=== PATIENT | male | born 1965 | race Caucasian/White ===

== ENCOUNTER 2019-09-20 14:13 | Emergency (ER) | payer OTHER ==
[2019-09-20 14:30] VITALS: TEMP 98; BMI 38.7
--- NOTE | 2019-09-20 14:38 | PDOC ---
History of Present Illness - General Chief Complaint: Substance Abuse Stated Complaint: Substance Abuse Time Seen by Provider: 09/20/19 14:36 History Source: Patient Exam Limitations: No Limitations - History of Present Illness Initial Comments: 09/20/19 14:37 HPI: 54yo M with PMH hypothyroidism and peripheral neuropathy in b/l LE presenting 3 hours s/p smoking K2 (Mr. Gerber). Pt reports he feels normal and that he is here because his wanted him to be evaluated. He denies prior reactions to K2, denies any symptoms at the current time. Denies CP, SOB, cough , nausea, vomiting, fevers, chills, anxiety, agitation, palpitations. Declines to explain why he smokes K2. ALL: Denies Meds: Synthroid, gabapentin, cymbalta PMH: As above PSH: Finger tumor removal SHx: Denies smoking / drinking, has smoked K2 multiple times. Lives with his , works as a computer technical specialist Past History - Travel Traveled outside of the country in the last 30 days: No Close contact w/someone who was outside of country & ill: No - Past Medical History Allergies/Adverse Reactions: Allergies Allergy/AdvReac Type Severity Reaction Status Date / Time No Known Allergies Allergy Verified 09/20/19 14:30 COPD: No Thyroid Disease: Yes (HYPOTHYOIDISM) Other medical history: NEUROPATHY - Psycho Social/Smoking Cessation Hx Smoking History: Never smoked Have you smoked in the past 12 months: No Information on smoking cessation initiated: No Hx Alcohol Use: No Drug/Substance Use Hx: No Review of Systems - Review of Systems Able to Perform ROS?: Yes Is the patient limited [place] proficient: Yes Constitutional: No: Symptoms Reported, See HPI, Chills, Diaphoresis, Fever, Loss of Appetite, Malaise, Night Sweats, Weakness, Weight Stable, Unintentional Wgt. Loss, Unexplained wgt Loss, Other HEENTM: No: Symptoms Reported, See HPI, Eye Pain, Blurred Vision, Tearing, Recent change in vision, Double Vision, Cataracts, Ear Pain, Ocular Prothesis, Ear Discharge, Nose Pain, Nose Congestion, Tinnitus, Nose Bleeding, Hearing Loss , Throat Pain, Throat Swelling, Mouth Pain, Dental Problems, Difficulty Swallowing, Mouth Swelling, Other Respiratory: No: Symptoms reported, See HPI, Cough, Orthopnea, Shortness of Breath, SOB with Exertion, SOB at Rest, Stridor, Wheezing, Productive cough, Hemoptysis, Other Cardiac (ROS): No: Symptoms Reported, See HPI, Chest Pain, Edema, Irregular Heart Rate, Lightheadedness, Palpitations, Syncope, Chest Tightness, Other ABD/GI: No: Symptoms Reported, See HPI, Abdominal Distended, Abd. Pain w/ defecation, Blood Streaked Bowels, Constipated, Diarrhea, Difficulty Swallowing , Nausea, Poor Appetite, Poor Fluid Intake, Rectal Bleeding, Vomiting, Indigestion, Abdominal cramping, Tarry Stools, Other : No: Symptoms Reported, See HPI, Burning, Dysuria, Discharge, Frequency, Flank Pain, Hematuria, Incontinence, Pain, Urgency, Testicular Mass, Testicular Swelling, Lesions, Testicular Pain, Other Musculoskeletal: No: Symptoms Reported, See HPI, Back Pain, Gout, Joint Pain, Joint Swelling, Muscle Pain, Muscle Weakness, Neck Pain, Joint Stiffness, Other Integumentary: No: Symptoms Reported, See HPI, Bruising, Change in Color, Change in Hair/Nails, Dryness, Erythema, Flushing, Lesions, Lumps, Pallor, Pruritus, Rash, Sweating, Other Neurological: No: Symptoms reported, See HPI, Headache, Numbness, Paresthesia, Pre-Existing Deficit, Seizure, Tingling, Tremors, Weakness, Unsteady Gait, Ataxia, Dizziness, Other Psychiatric: No: Anxiety, Depression, Frequent Crying, Stressors, Sleep Pattern Change, Emotional Problems, Mood Swings, Change in Appetite, Other Endocrine: No: Symptoms Reported, See HPI, Excessive Sweating, Flushing, Intolerance to Cold, Intolerance to Heat, Increased Hunger, Increased Thirst, Increased Urine, Unexplained Weight Gain, Unexplained Weight Loss, Change in Weight, Other Hematologic/Lymphatic: No: Symptoms Reported, See HPI, Anemia, Blood Clots, Easy Bleeding, Easy Bruising, Bleeding Diathesis, Lymph Node Abnormalities, Swollen Glands, Other All Other Systems: Reviewed and Negative *Physical Exam - Vital Signs Last Vital Signs Temp Pulse Resp BP Pulse Ox 98 F 70 18 151/83 97 09/20/19 14:26 09/20/19 14:26 09/20/19 14:26 09/20/19 14:26 09/20/19 14:26 - Physical Exam 09/20/19 14:37 Vitals reviewed, afebrile, hypertensive WDWN man, appears extremely relaxed, laying on stretcher NCAT, MMM, EOMI, trachea mildline RRR, nlo s1s2, no murmurs appreciated CTABL, normal WOB, no wheezes / rales / rhonchi Obese, soft, nontender, nondistended 2+ Radial and PT pulses WWP, no clubbing / cyanosis / edema CN grossly intact, sensation intact throughout, motor intact Medical Decision Making - Medical Decision Making 09/20/19 15:07 54yo M with PMH hypothyroidism and peripheral neuropathy in b/l LE presenting 3 hours s/p smoking K2 (Mr. Gerber). Presents for evaluation when his "caught him" smoking K2. No complaints. Normal physical exam and vitals (aside from hypertension). Will monitor, ambulate, and dispo. - EKG - Ambulate patient Dispo: Home with stable ambulation 09/20/19 16:31 - EKG NSR, normal axis, normal intervals, normal morphologies without ischemic changes - Patient ambulating well - Discharge home Discharge - Discharge Information Problems reviewed: Yes Clinical Impression/Diagnosis: Intoxication by drug Qualifiers: Complication of substance-induced condition: uncomplicated Qualified Code(s): F19.920 - Other psychoactive substance use, unspecified with intoxication, uncomplicated Condition: Improved Disposition: HOME - Admission No - Follow up/Referral Referrals: Jensen Olea [Primary Care Provider] - - Patient Discharge Instructions Additional Instructions: You were seen and evaluated in the [facility] ED. Thank you for coming in. We would recommend that you refrain from smoking K2. It is an unstudied compound and every package can affect you differently - it is unsafe for human consumption and could cause permanent disability or . Do not play roulette with your life. Please follow up with your PCP within the next week. Return to the ED for any new or concerning symptoms including but not limited to : difficulty breathing or chest pain. - Post Discharge Activity
--- NOTE | 2019-09-20 16:09 | PDOC ---
Attending Attestation - Resident Resident Name: Nain Brown - ED Attending Attestation I have performed the following: I have examined & evaluated the patient, The case was reviewed & discussed with the resident, I agree w/resident's findings & plan, Exceptions are as noted - HPI HPI: 09/20/19 16:04 54 M with h/o hypothyroid, peripheral neuropathy, presenting to ED after smoking K2. Pt states that he smokes K2 occasionally. He has no complaints but states that he is here because his caught him and called 911. Pt denies any other drug use. - Physicial Exam PE: 09/20/19 16:08 "GENERAL: Awake, alert, and fully oriented, in no acute distress. HEAD: No signs of trauma EYES: PERRLA, EOMI, sclera anicteric, conjunctiva clear ENT: Auricles normal inspection, hearing grossly normal, nares patent, oropharynx clear without exudates. Moist mucosa NECK: Nontender, no stepoffs, Normal ROM, supple, no lymphadenopathy, JVD, or masses LUNGS: Breath sounds equal, clear to auscultation bilaterally. No wheezes, and no crackles HEART: Regular rate and rhythm, normal S1 and S2, no murmurs, rubs or gallops ABDOMEN: Soft, nontender, normoactive bowel sounds. No guarding, no rebound. No masses EXTREMITIES: Normal range of motion, no edema. No clubbing or cyanosis. No cords, erythema, or tenderness NEUROLOGICAL: Cranial nerves II through XII intact. 5/5 strength and sensation in all extremities, Normal speech, normal gait, normal cerebellar function SKIN: Warm, Dry, normal turgor, no rashes or lesions noted. - Medical Decision Making 09/20/19 16:08 54 M with no complaints, sent to ED by his after she caught him smoking K2. Pt is awake and alert, clinically sober. Denies SI/HI/AVH. Pt refusing medical evaluation at this time. Pt is well appearing, with normal vitals. Clinically stable for DC at this time. I discussed the physical exam findings, ancillary test results and final diagnoses with the patient. I answered all of the patient's questions. The patient was satisfied with the care received and felt comfortable with the discharge plan and treatment plan. The patient agrees to follow up with the primary care physician within 24-72 hours.
[2019-09-20 16:51] VITALS: BP 138/77; PULSE 84
--- NOTE | 2019-09-21 11:54 | EKG ---
Test Reason : Blood Pressure : / mmHG Vent. Rate : 065 BPM Atrial Rate : 065 BPM P-R Int : 204 ms QRS Dur : 110 ms QT Int : 424 ms P-R-T Axes : 010 -23 -13 degrees QTc Int : 440 ms NORMAL SINUS RHYTHM MINIMAL VOLTAGE CRITERIA FOR LVH, MAY BE NORMAL VARIANT POSSIBLE ANTEROLATERAL INFARCT , AGE UNDETERMINED ABNORMAL ECG NO PREVIOUS ECGS AVAILABLE Confirmed by AVRIL BRISCOE MD ([id number]) on 09/21/2019 11:54:17 AM Referred By: Confirmed By:AVRIL BRISCOE MD
== END 2019-09-20 16:51 | disposition home or self-care (01) ==
LOC: JER 14:13
DX: F19.920 Other psychoactive substance use, unspecified with intoxication, uncomplicated (principal); E03.9 Hypothyroidism, unspecified; G62.9 Polyneuropathy, unspecified
CPT/HCPCS: 93005; 93010; 99281-25